=== PATIENT | male | born 1975 | race African-American/Black ===

== ENCOUNTER 2024-10-20 02:39 | Inpatient (IN) | payer OTHER ==
[2024-10-20] VITALS (30 sets, daily range): BP systolic 118–156; BP diastolic 63–100; PULSE 52–88; RESP 12–22; TEMP 98.1–98.5; O2SAT 88–98
[~2024-10-20] VITALS: Ht 193 cm; Wt 139.5 kg
[~2024-10-20 02:39] MED LIST: POTA-211 PO
--- NOTE | 2024-10-20 03:39 | ED.PDOC ---
History of Present Illness HPI Comments 49-year-old male came to ER due to high blood pressure. Patient does have history of hypertension, takes his lisinopril regularly as prescribed. For the past few hours patient has been having headaches, diaphoresis, he took his blood pressure at home and it was high at systolic 180s. Arrival at the ER pressure was 184/133 mm Hg. He denies any chest pains or shortness a breath. Patient states his blood pressure is usually controlled, last hypertensive episode was months ago Chief Complaint: High Blood Pressure Time Seen by MD: 03:38 Primary Care Provider: NISHA Reviewed Notes: Nurses Notes Allergies: Coded Allergies: Hydralazine (Verified Allergy, Unknown, 10/20/24) IV HYDRALAZINE Information Source: Patient Mode of Arrival: Ambulatory Timing: Hours Duration: Since onset Past Medical History PAST MEDICAL HISTORY: HTN Surgical History: Denies all surgeries Family History Family History: Family hx of HTN Social History Smoker: Non-Smoker Alcohol: Denies ETOH Use Drugs: Denies Drug Use Lives In: Home Constitutional: denies: chills, diaphoresis, fatigue, fever, malaise, sweats, weakness, others EENTM: denies: blurred vision, double vision, ear bleeding, ear discharge, ear drainage, ear pain, ear ringing, eye pain, eye redness, hearing loss, mouth pain, mouth swelling, nasal discharge, nose bleeding, nose congestion, nose pain, photophobia, tearing, throat pain, throat swelling, voice changes, others Respiratory: denies: cough, hemoptysis, orthopnea, SOB at rest, shortness of breath, SOB with excertion, stridor, wheezing, others Cardiovascular: denies: chest pain, dizzy spells, diaphoresis, Dyspnea on exertion, edema, irregular heart beat, left arm pain, lightheadedness, palpitations, PND, syncope, others Gastrointestinal: denies: abdomen distended, abdominal pain, blood streaked bowels, constipated, diarrhea, dysphagia, difficulty swallowing, hematemesis, melena, nausea, poor appetite, poor fluid intake, rectal bleeding, rectal pain, vomiting, others Genitourinary: denies: burning, dysuria, flank pain, frequency, hematuria, incontinence, penile discharge, penile sore, pain, testicle pain, testicle swelling, urgency, others Neurological: reports: headache; denies: dizziness, fainting, left sided numbness, left sided weakness, numbness, paresthesia, pre-existing deficit, right sided numbness, right sided weakness, seizure, speech problems, tingling, tremors, weakness, others Musculoskeletal: denies: back pain, gout, joint pain, joint swelling, muscle pain, muscle stiffness, neck pain, others Integumetry: denies: bruises, change in color, change in hair/nails, dryness, laceration, lesions, lumps, rash, wounds, others Allergic/Immunocompromised: denies: Difficulty Healing, Frequent Infections, Hives, Itching, others Hematologic/Lymphatic: denies: anemia, blood clots, easy bleeding, easy bruising, swollen glands, others Endocrine: denies: excessive hunger, excessive sweating, excessive thirst, excessive urination, flushing, intolerance to cold, intolerance to heat, unexplained weight gain, unexplained weight loss, others Psychiatric: denies: anxiety, bipolar disorder, depression, hopeless, panic disorder, schizophrenia, sleepless, suicidal, others Physical Exam General Appearance: Mild Distress, Normal HEENT: Normal ENT Inspection, Pharynx Normal, TMs Normal Neck: Full Range of Motion, Non-Tender, Normal, Normal Inspection Respiratory: Chest Non-Tender, Lungs Clear, No Accessory Muscle Use, No Respiratory Distress, Normal Breath Sounds Cardiovascular: No Edema, No JVD, No Murmur, No Gallop, Normal Peripheral Pulses, Regular Rate/Rhythm Breast Exam: Deferred Gastrointestinal: No Organomegaly, Non Tender, No Pulsatile Mass, Normal Bowel Sounds, Soft Genitalia: Deferred Pelvic: Deferred Rectal: Deferred Extremities: No calf tenderness, Normal capillary refill, Normal inspection, Normal range of motion, Non-tender, No pedal edema Musculoskeletal : Apperance: Normal Neurologic: Alert, drafter electronic II-XII nml as Tested, No Motor Deficits, Normal Affect, Normal Mood, No Sensory Deficits Cerebellar Function: Normal Reflexes: Normal Skin: Dry, Normal Color, Warm Lymphatic: No Adenopathy Was a procedure done? Was a procedure done?: No Differential Dx Considerations may include: Hypertensive urgency, headaches, hypertensive emergency X-Ray, Labs, Meds, VS Vital Signs Date Time Temp Pulse Resp B/P (MAP) Pulse Ox O2 Delivery O2 Flow Rate FiO2 10/20/24 09:36 179/120 10/20/24 09:30 97.9 53 20 179/120 (139) 95 97.9 10/20/24 08:09 165/108 10/20/24 08:06 52 18 98 Room Air* 0 21 10/20/24 08:06 97.9 56 20 165/108 (127) 95 97.9 10/20/24 06:23 182/90 10/20/24 06:22 182/90 10/20/24 06:07 182/90 (120) 10/20/24 05:50 191/129 (149) 10/20/24 05:18 192/131 10/20/24 05:00 192/131 (151) 10/20/24 02:53 60 10/20/24 02:40 98.3 63 18 184/133 98 98.3 Lab Test 10/20/24 09:19 Range/Units White Blood Count 6.8 4.4-10.8 10^3/uL Red Blood Count 5.51 4.5-5.90 10^6/uL Hemoglobin 16.5 13.5-17.5 g/dL Hematocrit 48.5 41.0-53.0 % Mean Corpuscular Volume 88.0 80.0-100.0 fL Mean Corpuscular Hemoglobin 30.0 28.0-32.0 pg Mean Corpuscular Hemoglobin Concent 34.1 32.0-36.0 g/dL Red Cell Distribution Width 15.0 H 11.8-14.3 % Platelet Count 270 140-450 10^3/uL Mean Platelet Volume 7.9 6.9-10.8 fL Neutrophils (%) (Auto) 70.6 37.0-80.0 % Lymphocytes (%) (Auto) 18.7 10.0-50.0 % Monocytes (%) (Auto) 9.2 0.0-12.0 % Eosinophils (%) (Auto) 0.6 0.0-7.0 % Basophils (%) (Auto) 0.9 0.0-2.0 % Neutrophils # (Auto) 4.8 1.6-8.6 10 ^3/uL Lymphocytes # (Auto) 1.3 0.4-5.4 10 ^3/uL Monocytes # (Auto) 0.6 0-1.3 10 ^3/uL Eosinophils # (Auto) 0 0-0.8 10 ^3/uL Basophils # (Auto) 0.1 0-0.2 10 ^3/uL Nucleated Red Blood Cells 0.2 % Sodium Level 142 136-145 mmol/L Potassium Level 3.2 L 3.5-5.1 mmol/L Chloride Level 103 98-107 mmol/L Carbon Dioxide Level 29 20-31 mmol/L Anion Gap 10 5-15 Blood Urea Nitrogen 13 9-23 mg/dL Creatinine 1.57 H 0.700-1.30 mg/dL Glomerular Filtration Rate Calc 53 >90 mL/min BUN/Creatinine Ratio 8.3 L 10.0-20.0 Serum Glucose 91 74-106 mg/dL Calcium Level 9.6 8.7-10.4 mg/dL Troponin I High Sensitivity 59 *H </=54 ng/L Current Medications Medications (Trade) Dose Ordered Sig/Alexi Route Start Time Stop Time Status Last Admin Clonidine HCl (Catapres Tablet) 0.1 mg ONCE ONCE PO 10/20/24 03:30 10/20/24 03:31 DC 10/20/24 05:18 Lisinopril (Zestril Tablet) 30 mg ONCE ONCE PO 10/20/24 09:15 10/20/24 09:16 DC 10/20/24 09:36 I took over from Dr. Lombardo at 6:00 a.m.. Plan was to give the patient another dose of clonidine which he got at 6:20 a.m.. On re-evaluation of his blood pressure 830 a.m. his diastolic continued to be high at 165/108. I rechecked it again 1 hour later myself and it is now 179/120. I have written for IV hydralazine however patient is allergic to IV hydralazine. His heart rate is 53 therefore I am unable to give a beta kieran. At this time therefore I have placed him on a nicardipine drip. Blood work has been ordered with a normal CBC however he does have a mild hypokalemia at 3.2 and mild acute kidney injury with a creatinine of 1.57 and mildly elevated troponin at 59. EKG has been ordered and is pending. At this time I have spoken to Dr. Gilmore at [facility]. Patient no longer has a headache. He is not on blood thinners. Doubt acute intracranial hemorrhage. Given the patient is on a nicardipine drip, patient has authorization to be admitted to our hospital. Case #[id number] Time of 1ST Reevaluation: 03:36 Reevaluation 1ST: Unchanged Time of 2ND Reevaluation: 07:23 Reevaluation 2ND: Unchanged Time of 3RD Reevaluation: 09:08 Patient Education/Counseling: Diagnosis, Treatment, Prognosis, Need For Follow Up Family Education/Counseling: No Family Present Comments pt is resting comfortably. clonidine was given but BP is not improved.. another clonidine will be given and i will sign out to Dr Cano SEPSIS Sepsis Screen Date sepsis recognized/suspect: Oct 27, 2024 Time Sepsis recognized/suspect: 0243 Recent Procedure: No On Antibiotic Therapy: No Respiratory Rate >20: No Heart Rate >90: No Temp<36 C (96.8 F) or >38.3 C: No SBP <90 or MAP <65 mmHG: No New Acute Mental Status Change: No Is the patient on CPAP, BIPAP,: No Physician Orders Electrocardigram (10/20/24 02:57) Electrocardigram (10/20/24 09:10) Troponin-I Hs (10/20/24 10:10) Electrocardigram (10/20/24 10:10) Nicardipine Hcl In Sodium Chlo (Cardene (10/20/24 09:45) Vital Signs Date Time Temp Pulse Resp B/P (MAP) Pulse Ox O2 Delivery O2 Flow Rate FiO2 10/20/24 09:36 179/120 10/20/24 09:30 97.9 53 20 179/120 (139) 95 97.9 10/20/24 08:09 165/108 10/20/24 08:06 52 18 98 Room Air* 0 21 10/20/24 08:06 97.9 56 20 165/108 (127) 95 97.9 10/20/24 06:23 182/90 10/20/24 06:22 182/90 10/20/24 06:07 182/90 (120) 10/20/24 05:50 191/129 (149) 10/20/24 05:18 192/131 10/20/24 05:00 192/131 (151) 10/20/24 02:53 60 10/20/24 02:40 98.3 63 18 184/133 98 98.3 Laboratory Tests Test 10/20/24 09:19 White Blood Count 6.8 10^3/uL (4.4-10.8) Medications Medications Dose Ordered Sig/Alexi Route Start Time Stop Time Status Last Admin Dose Admin Clonidine HCl 0.1 mg ONCE ONCE PO 10/20/24 03:30 10/20/24 03:31 DC 10/20/24 05:18 Clonidine HCl 0.1 mg STK-MED ONCE .ROUTE 10/20/24 06:15 10/20/24 06:13 DC 10/20/24 06:22 Lisinopril 30 mg ONCE ONCE PO 10/20/24 09:15 10/20/24 09:16 DC 10/20/24 09:36 Departure 1 Departure Time of Disposition: 10:39 Impression: Primary Impression: Hypertensive urgency Additional Impressions: Acute kidney injury Hypokalemia Disposition: 30 STILL A PATIENT Condition: Stable Critical Care Note Critical Care Time?: Yes (35 min-critical care time only) Critical care comment: Time spent multiple re-evaluations of the patient. Speaking to nursing staff, speaking to the patient, speaking to [facility] starting the patient on a drip and re-evaluating Stability Stability form required: No Heart Score Heart Score: Heart Score Response (Comments) Value History N/A 0 EKG N/A 0 Age N/A 0 Risk Factors N/A 0 Troponin N/A 0 Total 0 I personally scribed for RACHEL LOMBARDO MD ([email or web address]) on 10/20/24 at 03:39. Electronically submitted by Tony Weaver ([email or web address]). RACHEL LOMBARDO MD Oct 20, 2024 03:39 THAO CANO MD Oct 20, 2024 09:10
[2024-10-20] MEDS: hydrALAZINE HCL 20 MG/ML VL IV ONE (09:30)
[2024-10-20] MEDS: LISINOPRIL 20 MG TAB PO ONE (09:36)
[2024-10-20 09:43] LABS: Chloride 103 mmol/L (98-107); Sodium 142 mmol/L (136-145)
[2024-10-20 09:44] LABS: Anion Gap 10 (5-15); Calcium 9.6 mg/dL (8.7-10.4); Carbon Dioxide 29 mmol/L (20-31); Hematocrit 48.5 % (41.0-53.0); Hemoglobin 16.5 g/dL (13.5-17.5); Mean Corpuscular Hemoglobin 30.0 pg (28.0-32.0); Mean Corpuscular Volume 88.0 fL (80.0-100.0); Nucleated Red Blood Cells % 0.2 %
[2024-10-20 09:46] LABS: Potassium 3.2 mmol/L (3.5-5.1)
[2024-10-20 09:49] LABS: BUN/Creatinine Ratio 8.3 (10.0-20.0); Blood Urea Nitrogen 13 mg/dL (9-23); Glucose 91 mg/dL (74-106)
[2024-10-20] MEDS: NICARDIPINE HCL IN SODIUM CHLO 200 ML IV SCH (11:03)
[2024-10-20] MEDS ORDERED: MORPHINE SULFATE INJ 2 MG/ml SYRG IV PRN ×2 (11:15)
[2024-10-20] MEDS ORDERED: NITROGLYCERIN 0.4 MG SL TAB SL PRN (11:15)
[2024-10-20] MEDS ORDERED: HYDROcodone-ACET 5/325MG TAB PO PRN (11:15)
[2024-10-20] MEDS ORDERED: ONDANSETRON HCL 4 MG/2 ML VIAL IV PRN (11:15)
--- NOTE | 2024-10-20 11:17 | DVHHP2 ---
History of Present Illness Reason for Visit: UNCONTROLLED BLOOD PRESSURE History of Present Illness 49-year-old male with a history of hypertension presents with uncontrolled blood pressure, initially noted at 184/133. He states symptoms began yesterday following a family gathering, where he consumed chicken and chips. He reports mild headache and diaphoresis, but denies chest pain, shortness of breath, dizziness, syncope, or focal neurologic symptoms. He normally takes losartan, amlodipine, hydralazine, and potassium, with typical BP readings around 145/80s. He reports adherence to his medications. In the ED, he received lisinopril, hydralazine, and clonidine with minimal response (BP remained in 176/115s). A nicardipine drip was started for better BP control. Past Medical History Hypertension Past Surgical History Denies Family History Reviewed, non-contributory to the management of this case. Past Social History The patient lives at home, denies smoking, alcohol or illicit drugs abuse. Review of Systems Constitutional: Yes: Other (Headaches, diaphoresis); No: Fever, Chills, Sweats, Weakness, Malaise Eyes: No: Pain, Vision change, Conjunctivae inflammation, Eyelid inflammation, Other, Redness ENT: No: Ear pain, Ear discharge, Nose pain, Nose discharge, Nose congestion, Mouth pain, Mouth swelling, Throat pain, Throat swelling, Other Respiratory: No: Cough, Dry, Shortness of breath, SOB with excertion, Wheezing, Hemoptysis, Pleuritic Pain, Sputum, Wheezing, Other Cardiovascular: Other (Elevated blood pressure); No: Chest Pain, Palpitations, Orthopnea, Paroxysmal Noc. Dyspnea, Edema, Lt Headedness Gastrointestinal: No: Nausea, Vomiting, Abdominal Pain, Diarrhea, Constipation, Melena, Hematochezia, Other Genitourinary: No Dysuria, No Frequency, No Incontinence, No Hematuria, No Retention, No Other Musculoskeletal: No: other, neck pain, shoulder pain, arm pain, back pain, hand pain, leg pain, foot pain Skin: No: Rash, Lesions, Jaundice, Bruising, Other Neurological: No: Weakness, Numbness, Incoordination, Change in speech, Confusion, Seizures, Other Allergies: Coded Allergies: Hydralazine (Verified Allergy, Unknown, 10/20/24) IV HYDRALAZINE Medications Current Medications Medications Dose Ordered Sig/Alexi Route Start Time Stop Time Status Last Admin Dose Admin Nicardipine/ Sodium Chloride 200 ml @ 50 mls/hr Q4H IV 10/20/24 09:45 10/20/24 11:03 50 MLS/HR Exam Vital Signs Vital Signs Date Time Temp Pulse Resp B/P (MAP) Pulse Ox O2 Delivery O2 Flow Rate FiO2 10/20/24 11:10 167/113 10/20/24 09:30 97.9 53 20 95 97.9 10/20/24 08:06 Room Air* 0 21 General Appearance: Alert, Oriented X3, mild distress HEENT: Atraumatic, PERRLA, EOMI, Mucous membr. moist/pink Respiratory: Clear to auscultation Cardiovascular: Regular rate, Normal S1, Normal S2, No murmurs Abdominal: Normal bowel sounds, Soft, No tenderness, No hepatospenomegaly Extremities: No clubbing, No cyanosis, No edema, Normal pulses Skin: No rashes, No breakdown, No significant lesion Neuro: Normal gait, Normal speech, Strength at 5/5 X4 ext Psych/Mental Status: Mental status NL Labs/Xrays Labs Test 10/20/24 09:19 Range/Units White Blood Count 6.8 4.4-10.8 10^3/uL Red Blood Count 5.51 4.5-5.90 10^6/uL Hemoglobin 16.5 13.5-17.5 g/dL Hematocrit 48.5 41.0-53.0 % Mean Corpuscular Volume 88.0 80.0-100.0 fL Mean Corpuscular Hemoglobin 30.0 28.0-32.0 pg Mean Corpuscular Hemoglobin Concent 34.1 32.0-36.0 g/dL Red Cell Distribution Width 15.0 H 11.8-14.3 % Platelet Count 270 140-450 10^3/uL Mean Platelet Volume 7.9 6.9-10.8 fL Neutrophils (%) (Auto) 70.6 37.0-80.0 % Lymphocytes (%) (Auto) 18.7 10.0-50.0 % Monocytes (%) (Auto) 9.2 0.0-12.0 % Eosinophils (%) (Auto) 0.6 0.0-7.0 % Basophils (%) (Auto) 0.9 0.0-2.0 % Neutrophils # (Auto) 4.8 1.6-8.6 10 ^3/uL Lymphocytes # (Auto) 1.3 0.4-5.4 10 ^3/uL Monocytes # (Auto) 0.6 0-1.3 10 ^3/uL Eosinophils # (Auto) 0 0-0.8 10 ^3/uL Basophils # (Auto) 0.1 0-0.2 10 ^3/uL Nucleated Red Blood Cells 0.2 % Sodium Level 142 136-145 mmol/L Potassium Level 3.2 L 3.5-5.1 mmol/L Chloride Level 103 98-107 mmol/L Carbon Dioxide Level 29 20-31 mmol/L Anion Gap 10 5-15 Blood Urea Nitrogen 13 9-23 mg/dL Creatinine 1.57 H 0.700-1.30 mg/dL Glomerular Filtration Rate Calc 53 >90 mL/min BUN/Creatinine Ratio 8.3 L 10.0-20.0 Serum Glucose 91 74-106 mg/dL Calcium Level 9.6 8.7-10.4 mg/dL Troponin I High Sensitivity 59 *H </=54 ng/L SEPSIS Sepsis Screen Date sepsis recognized/suspect: Oct 27, 2024 Time Sepsis recognized/suspect: 024 Recent Procedure: No On Antibiotic Therapy: No Respiratory Rate >20: No Heart Rate >90: No Temp<36 C (96.8 F) or >38.3 C: No SBP <90 or MAP <65 mmHG: No New Acute Mental Status Change: No Is the patient on CPAP, BIPAP,: No Physician Orders Electrocardigram (10/20/24 09:10) Troponin-I Hs (10/20/24 10:10) Electrocardigram (10/20/24 10:10) Nicardipine Hcl In Sodium Chlo (Cardene (10/20/24 09:45) Admit (10/20/24 11:03) Code Status (10/20/24 11:03) Hydrocodone-Acet 5/325mg Tab ([place] 32 (10/20/24 11:15) Ondansetron Hcl (Zofran) (10/20/24 11:15) Enoxaparin Sodium (Lovenox) (10/21/24 10:00) Complete Blood Count (10/21/24 04:00) Comprehensive Metabolic Panel (10/21/24 04:00) Cardiac Diet-2gna,Lofat,Lochol (10/20/24 Lunch) Condition: Serious (10/20/24 11:03) Acetaminophen Tablet (Tylenol Tablet) (10/20/24 11:15) Morphine Sulfate Injection (10/20/24 11:15) Nitroglycerin Sublingual (Ntrostat Subli (10/20/24 11:15) Morphine Sulfate Injection (10/20/24 11:15) Stat Ekg For Chest Pain (10/20/24 11:03) Notify Md Of Changes From Base (10/20/24 11:03) Brush Operator For 24 Hours (10/20/24 11:03) Emergency Dysrhythmia Protocol (10/20/24 11:03) Rhythm Strips Once Every Shift (10/20/24 11:03) Oxygen By Nasal Cannula (10/20/24 11:03) Troponin-I Hs (10/20/24 11:03) Troponin-I Hs (10/20/24 12:03) Troponin-I Hs (10/20/24 14:03) 1/2 Ns (10/20/24 11:15) Magnesium (10/20/24 11:03) Potassium Er Tablet (Klor-Con Tablet) (10/20/24 11:15) Potassium Chl Fady Kcl (10/20/24 11:15) Echo 2d Mode Cardiac Dop (10/20/24 11:03) Urinalysis (10/20/24 11:03) Thyroid Stimulating Hormone (10/20/24 11:03) Lipid Panel (10/20/24 11:03) Clonidine Hcl Tablet (Catapres Tablet) (10/20/24 11:15) Vital Signs Date Time Temp Pulse Resp B/P (MAP) Pulse Ox O2 Delivery O2 Flow Rate FiO2 10/20/24 11:10 167/113 10/20/24 11:03 176/115 10/20/24 09:36 179/120 10/20/24 09:30 97.9 53 20 179/120 (139) 95 97.9 10/20/24 08:09 165/108 10/20/24 08:06 52 18 98 Room Air* 0 21 10/20/24 08:06 97.9 56 20 165/108 (127) 95 97.9 10/20/24 06:23 182/90 10/20/24 06:22 182/90 10/20/24 06:07 182/90 (120) 10/20/24 05:50 191/129 (149) 10/20/24 05:18 192/131 10/20/24 05:00 192/131 (151) Laboratory Tests Test 10/20/24 09:19 White Blood Count 6.8 10^3/uL (4.4-10.8) Medications Medications Dose Ordered Sig/Alexi Route Start Time Stop Time Status Last Admin Dose Admin Clonidine HCl 0.1 mg ONCE ONCE PO 10/20/24 03:30 10/20/24 03:31 DC 10/20/24 05:18 0.1 MG Clonidine HCl 0.1 mg STK-MED ONCE .ROUTE 10/20/24 06:15 10/20/24 06:13 DC 10/20/24 06:22 0.1 MG Lisinopril 30 mg ONCE ONCE PO 10/20/24 09:15 10/20/24 09:16 DC 10/20/24 09:36 30 MG Nicardipine/ Sodium Chloride 200 ml @ 50 mls/hr Q4H IV 10/20/24 09:45 10/20/24 11:03 50 MLS/HR Assessment/Plan Assessment/Plan # hypertensive urgency * Admit to ICU * Continue nicardipine drip per protocol--titrate BP down safely * Monitor BP, cardiac telemetry * Dash diet # NSTEMI likely demand ischemia secondary to above * Trend troponin * Echocardiogram * Repeat ECG if symptom change * Lipid panel, TSH # SHIVA on CKD 2 # hypokalemia * 1/2 NS IV * Monitor kidney function * Repleted potassium * Monitor electrolytes and replete as needed # obesity, class II * Lifestyle modification counseled with regular exercise, weight loss DVT prophylaxis Medical plan discussed with patient and RN Plan discussed with: Patient, Other (RN) My Orders Orders - SAVI KANG Procedure Category Date Status Time Admit ADMIT 10/20/24 Transmitted 11:03 Code Status CODE 10/20/24 Transmitted 11:03 Hydrocodone-Acet PHA 10/20/24 Transmitted 5/325mg Tab ([place] 11:15 Ondansetron Hcl PHA 10/20/24 Transmitted (Zofran) 11:15 Enoxaparin Sodium PHA 10/21/24 Transmitted (Lovenox) 10:00 Complete Blood Count LAB 10/21/24 Verified 04:00 Comprehensive LAB 10/21/24 Verified Metabolic Panel 04:00 Cardiac DIET 10/20/24 Transmitted Diet-2gna,Lofat,Lochol Lunch Condition: Serious PEDRO 10/20/24 In Process 11:03 Acetaminophen Tablet PHA 10/20/24 Transmitted (Tylenol Tablet) 11:15 Morphine Sulfate PHA 10/20/24 Transmitted Injection 11:15 Nitroglycerin PHA 10/20/24 Transmitted Sublingual (Ntrostat 11:15 Morphine Sulfate PHA 10/20/24 Transmitted Injection 11:15 Stat Ekg For Chest PEDRO 10/20/24 In Process Pain 11:03 Notify Md Of Changes [facility] 10/20/24 In Process From Base 11:03 Brush Operator For PEDRO 10/20/24 In Process 24 Hours 11:03 Emergency Dysrhythmia [facility] 10/20/24 In Process Protocol 11:03 Rhythm Strips Once [facility] 10/20/24 In Process Every Shift 11:03 Oxygen By Nasal RT 10/20/24 Transmitted Cannula 11:03 Troponin-I Hs LAB 10/20/24 Transmitted 11:03 Troponin-I Hs LAB 10/20/24 Transmitted 12:03 Troponin-I Hs LAB 10/20/24 Transmitted 14:03 1/2 Ns PHA 10/20/24 Transmitted 11:15 Magnesium LAB 10/20/24 Transmitted 11:03 Potassium Er Tablet PHA 10/20/24 Transmitted (Klor-Con Tablet) 11:15 Potassium Chl Fady PHA 10/20/24 Transmitted KCL 11:15 Echo 2d Mode Cardiac US 10/20/24 Logged DOP 11:03 Urinalysis LAB 10/20/24 Transmitted 11:03 Thyroid Stimulating LAB 10/20/24 Transmitted Hormone 11:03 Lipid Panel LAB 10/20/24 Transmitted 11:03 Clonidine Hcl Tablet PHA 10/20/24 Transmitted (Catapres Tablet) 11:15 Date of Service: Oct 20, 2024 Billing Provider: SAVI KANG Common Visit Codes: 52735-[id number] INP/OBS CARE (HIGH) Consultation Codes: 95521-[id number] CONSULT <60MIN SAVI KANG Oct 20, 2024 11:17
[2024-10-20] MEDS: POTASSIUM CHL 20MEQ/100ML 100 ML IV SCH (11:36)
[2024-10-20] MEDS: POTASSIUM CHL 20 Meq TABLET PO ONE (11:44)
[2024-10-20 12:22] LABS: Magnesium 2.2 mg/dL (1.6-2.6); Triglycerides 82.0 mg/dL (< 150)
[2024-10-20 12:24] LABS: Cholesterol 167.0 mg/dL (< 200); HDL Cholesterol 44.0 mg/dL (40-59)
[2024-10-20 12:27] LABS: Alanine Aminotransferase 53 U/L (7-40)
[2024-10-20 12:49] LABS: Urine Protein, UAD TRACE (Negative)
--- NOTE | 2024-10-20 12:53 | DVH ---
CHEST RADIOGRAPH Indication: uncontrolled bp Technique: Single frontal view of the chest was obtained COMPARISON: None FINDINGS: Lines and Tubes: None Lungs: Congestion Pleura: No effusion. No pneumothorax. Cardiomediastinal contours: Cardiomegaly Bones: Unremarkable IMPRESSION: Increased interstital prominence. This may represent pulmonary vascular congestion and/or viral pneum onia. Clinical correlation advised.
[2024-10-20] MEDS: SOD CHL 0.45% 1,000 ML IV SCH (15:02)
[2024-10-20] MEDS: ACETAMINOPHEN 325 MG TAB PO PRN (16:29)
[2024-10-21] VITALS (30 sets, daily range): BP systolic 132–170; BP diastolic 80–107; PULSE 47–74; RESP 10–25; TEMP 98.1–98.5; O2SAT 87–96
[2024-10-21 04:30] LABS: Hematocrit 47.3 % (41.0-53.0); Hemoglobin 16.1 g/dL (13.5-17.5); Mean Corpuscular Hemoglobin 29.8 pg (28.0-32.0); Mean Corpuscular Volume 87.5 fL (80.0-100.0); Nucleated Red Blood Cells % 0.2 %
[2024-10-21 04:43] LABS: Albumin 3.9 g/dL (3.2-4.8); Alkaline Phosphatase 84 U/L (46-116); Anion Gap 10 (5-15); BUN/Creatinine Ratio 6.6 (10.0-20.0); Bilirubin, Total 1.0 mg/dL (0.2-1.0); Blood Urea Nitrogen 10 mg/dL (9-23); Calcium 8.8 mg/dL (8.7-10.4); Carbon Dioxide 27 mmol/L (20-31); Chloride 104 mmol/L (98-107); Glucose 86 mg/dL (74-106); Potassium 3.6 mmol/L (3.5-5.1); Sodium 141 mmol/L (136-145); Total Protein 7.1 g/dL (5.7-8.2)
[2024-10-21 04:45] LABS: Alanine Aminotransferase 40 U/L (7-40)
[2024-10-21] MEDS ORDERED: AMLO1TAB23 PO (05:50)
[2024-10-21] MEDS ORDERED: HYDR25TA87 PO (05:50)
[2024-10-21] MEDS ORDERED: LOSA-534 PO (05:50)
--- NOTE | 2024-10-21 07:41 | ECG ---
[facility] Test Date: 2024-10-20 Test Time: 02:53:03 Pat Name: KADEEM JOHNSON Department: ED Room: [address] [place] [address] A Gender: M Medical Bill Processor: ISHA : 1975 Requested By: RACHEL COATS Order Number: [id number] Reading MD: Delmar Wasserman Measurements Intervals [place] Rate: 60 P: 4 WA: 177 QRS: -17 QRSD: 105 T: 164 QT: 425 QTc: 425 Interpretive Statements Sinus rhythm LVH with secondary repolarization abnormality Baseline wander in lead(s) V2 Electronically Signed On 10-23-2024 18:36:24 PDT by Delmar Wasserman Please click the below link to view image of tracing.
--- NOTE | 2024-10-21 08:33 | DVHSR ---
APPROVED REPORT EXAM: Two-dimensional and M-mode echocardiogram with Doppler and color Doppler. Blood Pressure: 167/113 mmHg INDICATION Elevated trops RISK FACTORS Height: 74, Weight: 305 DIMENSIONS LVDd5.7 (3.8-5.7cm)LA (2D)6.0 (1.9-4.0cm)Aortic Root4.2 (2.0-3.7cm) LVDs4.0 (2.5-4.0cm)LA (MM) (1.9-4.0cm)Aortic Cusp Exc2.4 (1.5-2.0cm) EF (%) 57.0 (55-70%)Rt. Atrium (1.9-4.0cm)Asc. Aorta cm Mitral Valve MitralMitral Stenosis E wave0.76m/sMV Mean GR.mmHg A wave0.65m/sMV Peak GR.13mmHg E/A ratio1.22D MVAcm2 DECEL [id number] 1/2 [id number] IVRTmsDop MVA5.82cm2 Aortic Valve Aortic ValveAortic Stenosis V11.14m/Chong Mean GR.5mmHg V21.67m/Chong Peak GR.11mmHg LVOT Diameter2.5 (1.8-2.4cm)Doppler AVA3.35cm2 AI P 1/2 Dtdf040.15ms Pulmonic Valve V21.17m/s Tricuspid Valve TR Velocity2.83m/s [id number] Conclusion lvef 65% grade 1 diastolic dysfunction SEVERE LVH normal RV functoin normla atria no severe valve abnormalities noted
[2024-10-21] MEDS: ENOXAPARIN SOD 40 MG/0.4 ML SYRINGE SC SCH (10:00)
[2024-10-21] MEDS ORDERED: HYDR25TA88 PO (12:28)
--- NOTE | 2024-10-21 15:28 | DVHPN2 ---
Progress Note Date Seen: Oct 21, 2024 Medical Necessity Reason Pt with a Central, PICC or Fol: No Subjective Patient reports: No new complaints Review of Systems: HEENT:Normal, CVS:Normal, RESPIRATORY:Normal, GI:Normal, :Normal, MSK:Normal, NEURO:Normal Objective vital signs Vital Sign Date Time Temp Pulse Resp B/P (MAP) Pulse Ox O2 Delivery O2 Flow Rate FiO2 10/21/24 14:00 49 12 134/88 (103) 93 10/21/24 14:00 Room Air* 0 21 10/21/24 12:01 98.4 98.4 Total Intake and Output 10/20/24 10/20/24 10/21/24 15:00 23:00 07:00 Intake Total 71.46434 ml 520 ml 600 ml Output Total 950 ml 1201 ml Balance 71.17707 ml -430 ml -601 ml medications Current Medications Medications Dose Ordered Sig/Alexi Route Start Time Stop Time Status Last Admin Dose Admin Nicardipine/ Sodium Chloride 200 ml @ 50 mls/hr Q4H IV 10/20/24 09:45 10/20/24 18:31 75 MLS/HR Acetaminophen/ Hydrocodone Bitart 1 tab Q4HP PRN PO 10/20/24 11:15 Ondansetron HCl 4 mg Q4HP PRN IV 10/20/24 11:15 Enoxaparin Sodium 40 mg DAILY SC 10/21/24 10:00 Acetaminophen 650 mg Q6HP PRN PO 10/20/24 11:15 10/20/24 21:28 650 MG Morphine Sulfate 2 mg Q4HPRN PRN IV 10/20/24 11:15 Nitroglycerin 0.4 mg Q5MINP PRN SL 10/20/24 11:15 Morphine Sulfate 2 mg Q30M PRN IV 10/20/24 11:15 Sodium Chloride 1,000 ml @ 100 mls/hr Q10H IV 10/20/24 11:15 10/20/24 15:02 100 MLS/HR Clonidine HCl 0.1 mg TID PRN PO 10/20/24 11:15 10/21/24 10:17 0.1 MG Examination: GENERAL:Normal, HEENT:Normal, NECK:Normal, LUNGS:Normal, CVS:Normal, ABDOMEN:Normal, MSK:Normal, MSK:Abnormal (edema+), SKIN:Normal, NEURO:Normal, :Normal laboratory and microbiology Laboratory Tests 10/21/24 03:41 Test 10/21/24 03:41 Range/Units Serum Glucose 86 74-106 mg/dL Microbiology Date/Time Source Procedure Growth Status 10/20/24 17:00 Nose MRSA Screen - Final Complete Problem List/Assessment/Plan Problem List/Assessment/Plan #1 hypertensive emergency: adjust meds #2 ? acute diastolic heart failure #3 ckd stage 3 #4 obesity #5 nstemi ?type 2 long dw /pt regards plan of care Plan discussed with: Patient, Spouse Critical Care Time (mins): 38 (critical care time excluding procedures 38 mins) Date of Service: Oct 21, 2024 Billing Provider: TAHMINA WHITFIELD MD Common Visit Codes: [id number] CARE 30-74 MIN TAHMINA WHITFIELD MD Oct 21, 2024 15:28
[2024-10-22] VITALS (29 sets, daily range): BP systolic 119–165; BP diastolic 68–116; PULSE 49–80; RESP 10–25; TEMP 98.2–98.7; O2SAT 90–96
[2024-10-22 04:41] LABS: Chloride 105 mmol/L (98-107); Sodium 141 mmol/L (136-145)
[2024-10-22 04:42] LABS: Anion Gap 8 (5-15); Calcium 8.9 mg/dL (8.7-10.4); Carbon Dioxide 28 mmol/L (20-31)
[2024-10-22 04:44] LABS: Potassium 3.0 mmol/L (3.5-5.1)
[2024-10-22 04:47] LABS: BUN/Creatinine Ratio 9.6 (10.0-20.0); Blood Urea Nitrogen 13 mg/dL (9-23); Glucose 78 mg/dL (74-106)
[2024-10-22 06:29] LABS: Hematocrit 47.8 % (41.0-53.0); Hemoglobin 16.5 g/dL (13.5-17.5); Mean Corpuscular Hemoglobin 30.2 pg (28.0-32.0); Mean Corpuscular Volume 87.4 fL (80.0-100.0); Nucleated Red Blood Cells % 0.1 %
[2024-10-22] MEDS: LOSARTAN POTASSIUM 50 MG TAB PO SCH (09:58)
[2024-10-22] MEDS: POTASSIUM EFFERVESENT TAB 25 MEQ PO ONE (09:59)
--- NOTE | 2024-10-22 15:29 | DVHPN2 ---
Progress Note Date Seen: Oct 22, 2024 Medical Necessity Reason Pt with a Central, PICC or Fol: No Subjective Patient reports: No new complaints Review of Systems: HEENT:Normal, CVS:Normal, RESPIRATORY:Normal, GI:Normal, :Normal, MSK:Normal, NEURO:Normal Objective vital signs Vital Sign Date Time Temp Pulse Resp B/P (MAP) Pulse Ox O2 Delivery O2 Flow Rate FiO2 10/22/24 13:42 153/107 10/22/24 12:01 98.2 54 22 93 98.2 10/22/24 12:00 Nasal Cannula* 2 28 Total Intake and Output 10/21/24 10/21/24 10/22/24 15:00 23:00 07:00 Intake Total 480 ml 960 ml 1300 ml Output Total 1800 ml Balance 480 ml 960 ml -500 ml medications Current Medications Medications Dose Ordered Sig/Alexi Route Start Time Stop Time Status Last Admin Dose Admin Acetaminophen/ Hydrocodone Bitart 1 tab Q4HP PRN PO 10/20/24 11:15 Ondansetron HCl 4 mg Q4HP PRN IV 10/20/24 11:15 Acetaminophen 650 mg Q6HP PRN PO 10/20/24 11:15 10/20/24 21:28 650 MG Morphine Sulfate 2 mg Q4HPRN PRN IV 10/20/24 11:15 Nitroglycerin 0.4 mg Q5MINP PRN SL 10/20/24 11:15 Morphine Sulfate 2 mg Q30M PRN IV 10/20/24 11:15 Losartan Potassium 50 mg DAILY PO 10/22/24 10:00 10/22/24 09:58 50 MG Hydralazine HCl 100 mg TID PO 10/22/24 22:00 UNV Nifedipine 90 mg DAILY PO 10/23/24 10:00 UNV Examination: GENERAL:Normal, HEENT:Normal, NECK:Normal, LUNGS:Normal, CVS:Normal, ABDOMEN:Normal, MSK:Normal, SKIN:Normal, NEURO:Normal, :Normal laboratory and microbiology Laboratory Tests 10/22/24 03:27 Test 10/22/24 03:27 Range/Units Serum Glucose 78 74-106 mg/dL Microbiology Date/Time Source Procedure Growth Status 10/20/24 17:00 Nose MRSA Screen - Final Complete Problem List/Assessment/Plan Problem List/Assessment/Plan #1 hypertensive emergency: adjust meds #2 ? acute diastolic heart failure #3 ckd stage 3 #4 obesity #5 nstemi ?type 2 unstable for transfer long dw /pt regards plan of care Plan discussed with: Patient, Spouse My Orders My Orders Orders - TAHMINA WHITFIELD MD Procedure Category Date Status Time Hydralazine Hcl PHA 10/22/24 Logged Tablet (Apresoline 22:00 Nifedipine Er PHA 10/23/24 Logged (Procardia Xl 10:00 Nifedipine Er PHA 10/22/24 Logged (Procardia Xl 15:30 Basic Metabolic Panel LAB 10/23/24 Verified 06:00 Magnesium LAB 10/23/24 Verified 05:00 Date of Service: Oct 22, 2024 Billing Provider: TAHMINA WHITFIELD MD Common Visit Codes: [id number] INP/OBS CARE(HIGH) TAHMINA WHITFIELD MD Oct 22, 2024 15:29
--- NOTE | 2024-10-22 20:12 | DVH ---
RENAL DUPLEX ULTRASOUND REASON FOR EXAM: renal failure COMPARISON: None TECHNIQUE: Grayscale imaging of both kidneys is performed. This was followed by duplex scanning of arterial inflow and venous outflow of both kidneys. FINDINGS: RIGHT: The kidney demonstrates increased echogenicity and measures 10.9 cm. No solid mass or hydronep hrosis is seen. There is a simple appearing anechoic cyst measuring 2.6 cm at the interpolar region. The main renal artery peak systolic velocity is normal and measures 45 cm/s. The renal artery/aorta ratio is not elevated. Arcuate artery restive indices (RI) measure 0.5, 0.6 and 0.5 in the superior, mid and inferior aspects, respectively. The renal vein is patent. LEFT: The kidney demonstrates increased echogenicity and measures 16.4 cm. No solid mass or hydroneph rosis is seen. There is an anechoic 10.7 cm cyst at the superior pole. The main renal artery peak sys tolic velocity is normal and measures 74 cm/s. The renal artery/aorta ratio is not elevated. Arcuate artery restive indices (RI) measure 0.6, 0.5 and 0.6 in the superior, mid and inferior aspects, respe ctively. The renal vein is patent. Aortic peak systolic velocity 74 cm/sec. IMPRESSION: Increased echogenicity of both kidneys consistent with medical renal disease. No evidence of renal artery stenosis. There is a large simple appearing cyst at the superior pole of the left kidney measuring approximatel y 10.7 cm.
[2024-10-23] VITALS (18 sets, daily range): BP systolic 111–148; BP diastolic 64–101; PULSE 54–82; RESP 10–22; TEMP 98.5–98.9; O2SAT 90–96
[2024-10-23 04:58] LABS: Hematocrit 48.1 % (41.0-53.0); Hemoglobin 17.0 g/dL (13.5-17.5); Mean Corpuscular Hemoglobin 30.8 pg (28.0-32.0); Mean Corpuscular Volume 87.0 fL (80.0-100.0); Nucleated Red Blood Cells % 0.3 %
[2024-10-23 05:01] LABS: Calcium 9.1 mg/dL (8.7-10.4); Carbon Dioxide 26 mmol/L (20-31)
[2024-10-23 05:02] LABS: Anion Gap 10 (5-15); Chloride 103 mmol/L (98-107); Sodium 139 mmol/L (136-145)
[2024-10-23 05:03] LABS: Potassium 3.0 mmol/L (3.5-5.1)
[2024-10-23 05:06] LABS: BUN/Creatinine Ratio 9.8 (10.0-20.0); Blood Urea Nitrogen 14 mg/dL (9-23); Glucose 94 mg/dL (74-106); Magnesium 2.2 mg/dL (1.6-2.6)
[2024-10-23] MEDS: POTASSIUM EFFERVESENT TAB 25 MEQ PO ONE (05:59)
--- NOTE | 2024-10-23 14:31 | DVHDS2 ---
Discharge Summary Date of Admission Oct 20, 2024 at 11:03 Date of Discharge: Oct 23, 2024 Labs/Diagnostic Data: Laboratory Results Test 10/23/24 03:55 10/21/24 03:41 10/20/24 13:54 10/20/24 11:45 White Blood Count 6.0 10^3/uL (4.4-10.8) Red Blood Count 5.53 10^6/uL (4.5-5.90) Hemoglobin 17.0 g/dL (13.5-17.5) Hematocrit 48.1 % (41.0-53.0) Mean Corpuscular Volume 87.0 fL (80.0-100.0) Mean Corpuscular Hemoglobin 30.8 pg (28.0-32.0) Mean Corpuscular Hemoglobin Concent 35.4 g/dL (32.0-36.0) Red Cell Distribution Width 14.8 % (11.8-14.3) Platelet Count 281 10^3/uL (140-450) Mean Platelet Volume 7.9 fL (6.9-10.8) Neutrophils (%) (Auto) 67.7 % (37.0-80.0) Lymphocytes (%) (Auto) 18.8 % (10.0-50.0) Monocytes (%) (Auto) 12.4 % (0.0-12.0) Eosinophils (%) (Auto) 0.4 % (0.0-7.0) Basophils (%) (Auto) 0.7 % (0.0-2.0) Neutrophils # (Auto) 4.0 10 ^3/uL (1.6-8.6) Lymphocytes # (Auto) 1.1 10 ^3/uL (0.4-5.4) Monocytes # (Auto) 0.7 10 ^3/uL (0-1.3) Eosinophils # (Auto) 0 10 ^3/uL (0-0.8) Basophils # (Auto) 0 10 ^3/uL (0-0.2) Nucleated Red Blood Cells 0.3 % Sodium Level 139 mmol/L (136-145) Potassium Level 3.0 mmol/L (3.5-5.1) Chloride Level 103 mmol/L (98-107) Carbon Dioxide Level 26 mmol/L (20-31) Anion Gap 10 (5-15) Blood Urea Nitrogen 14 mg/dL (9-23) Creatinine 1.43 mg/dL (0.700-1.30) Glomerular Filtration Rate Calc 60 mL/min (>90) BUN/Creatinine Ratio 9.8 (10.0-20.0) Serum Glucose 94 mg/dL (74-106) Calcium Level 9.1 mg/dL (8.7-10.4) Magnesium Level 2.2 mg/dL (1.6-2.6) Total Bilirubin 1.0 mg/dL (0.2-1.0) Aspartate Amino Transferase (AST) 29 U/L (13-40) Alanine Aminotransferase (ALT) 40 U/L (7-40) Alkaline Phosphatase 84 U/L (46-116) Total Protein 7.1 g/dL (5.7-8.2) Albumin 3.9 g/dL (3.2-4.8) Troponin I High Sensitivity 50 ng/L (</=54) Triglycerides Level 82 mg/dL (< 150) Cholesterol Level 167 mg/dL (< 200) LDL Cholesterol 110 mg/dL (< 100) HDL Cholesterol 44 mg/dL (40-59) Thyroid Stimulating Hormone (TSH) 1.20 uIU/mL (0.55-4.78) Test 10/20/24 11:02 Urine Color Light-yellow (Yellow) Urine Clarity Clear (Clear) Urine pH 6.5 (5.0-9.0) Urine Specific [place] 1.014 (1.001-1.035) Urine Protein Trace (Negative) Urine Ketones Negative (Negative) Urine Blood Negative /uL (Negative) Urine Nitrite Negative (Negative) Urine Bilirubin Negative (Negative) Urine Urobilinogen Normal mg/dL (Negative) Urine Leukocyte Esterase Negative /uL (Negative) Urine RBC 3 /hpf (0 - 3) Urine Microscopic WBC 1 /HPF (0-3) Urine Squamous Epithelial Cells None seen /hpf (<5) Urine Bacteria None seen /hpf (None Seen) Urine Hyaline Casts Few /lpf (0 - 2) Urine Glucose Normal mg/dL (Normal) Other Laboratory Tests 10/23/24 03:55 Brief Hx & Hospital Course: see dictated note Condition at Discharge: Fair Final Diagnosis/Problems List htn Discharge Disposition: Home Discharge Instruct/Medications Diet: Cardiac 2g Na,low cholest Activity: No Restrictions, As Tolerated Follow Up/Referral: fu with [facility] Medications: script to pharmacy Scheduled Amlodipine Besylate (Amlodipine Besylate), 1 TAB PO DAILY, (Reported) Hydralazine Hcl (Hydralazine Hcl), 75 MG PO TID, (Reported) Losartan Potassium (Losartan Potassium), 1 TAB PO BID, (Reported) Potassium Chloride (Klor-Con 10), TAB PO UD, (Reported) Discharge Statement: "Patient was advised to return to the ER or call 911 if any headaches, dizziness, shortness of breath, chest pain, abdominal pain, bleeding, fevers, or worsening of medical condition. Patient was counseled about treatment plan, medications, possible side effects, patientverbalized understanding. All questions were answered to the best of my ability. This discharge took greater then 30 minutes in planning, reviewing documentation, counseling the patient, and discussing with other team members." ASSESSMENT ASSESSMENT Assessment htn Date of Service: Oct 23, 2024 Billing Provider: TAHMINA WHITFIELD MD Common Visit Codes: 19292-SAE/OBS DISCH DAY >30min TAHMINA WHITFIELD MD Oct 23, 2024 14:31
[2024-10-23] MEDS ORDERED: LOSA-534 PO (14:36)
[2024-10-23] MEDS ORDERED: HYDR100T10 PO (14:36)
[2024-10-23] MEDS ORDERED: NIFE90TA75 PO (14:36)
--- NOTE | 2024-10-23 16:31 | DVHDS ---
DATE OF DISCHARGE: 10/23/2024 The patient is a 49-year-old gentleman who was admitted with elevated blood pressure of 184/133 along with complaints of headache and diaphoresis. The patient has history of hypertension. HOSPITAL COURSE: The patient was started on intravenous nicardipine. The patient's creatinine was elevated at 1.5. ALT and AST were mildly elevated. Troponin was elevated to 59. The patient had an echocardiogram done that showed evidence of severe left ventricular hypertrophy with ejection fraction of 65%. The patient had renal artery duplex that showed increased echogenicity of both kidneys consistent with medical renal disease as well as a large simple-appearing cyst at the superior pole of the left kidney. The patient currently is doing well and will be discharged home to be on nifedipine ER 90 mg daily, hydralazine 100 mg t.i.d., and losartan 50 mg daily. He will follow up with his primary in [place]. The patient had a chest x-ray that showed evidence of pulmonary venous congestion. FINAL DIAGNOSES: * Hypertensive emergency. * Likely acute diastolic heart failure. * CKD stage 3. * Obesity. * Non-STEMI, likely type 2. Time spent in discharge planning and review of plan with the patient and family at bedside was 39 minutes. MD BRAXTON Cortez/BERTRAM TID: [id number] RECEIPT: [id number]
== END 2024-10-23 15:30 | disposition home or self-care (01) | DRG 280 ==
LOC: ER 02:39 → OVERFLOW 11:03 → ICU WEST 16:44
PROVIDERS: ADMIT Internal Medicine; ATTEND Internal Medicine
DX: I16.1 Hypertensive emergency (principal); I50.31 Acute diastolic (congestive) heart failure; I21.A1 Myocardial infarction type 2; N17.9 Acute kidney failure, unspecified; E66.812 Obesity, class 2; N18.30 Chronic kidney disease, stage 3 unspecified; Z68.37 Body mass index [BMI] 37.0-37.9, adult; I13.0 Hypertensive heart and chronic kidney disease with heart failure and stage 1 through stage 4 chronic kidney disease, or unspecified chronic kidney disease; E87.6 Hypokalemia; Z82.49 Family history of ischemic heart disease and other diseases of the circulatory system; Z79.899 Other long term (current) drug therapy
CPT/HCPCS: 36415; 71045; 80048; 80053; 80061; 81001; 83735; 84443; 84450; 84460; 84484; 85025; 87081; 93005; 93306; 93976; 96365; 99291; G0378; J3480